=== PATIENT | female | born 1975 | race Two or more races ===

== ENCOUNTER → 2018-04-16 12:44 | Outpatient (CLI) | payer OTHER, SELFPAY ==
--- NOTE | 2018-04-16 12:48 | US_ITS ---
MM Dig mamm BI DX w/CAD, US breast LT limited INDICATION: Palpable abnormality in the upper outer left breast ORDERING PHYSICIAN: [facility] PATIENT AGE: 42 years COMPARISON: 04/23/2015 TECHNIQUE: Standard images performed along with spot compression views of the left breast and left breast ultrasound FINDINGS: There is dense fibroglandular tissue which decreases the sensitivity of mammography.. On the right there is no discrete mass or malignant appearing microcalcification. Asymmetric tissue is present in the infrahilar aspect of the right breast not significantly changed. There is a small cluster of calcification noted in the outer aspect of the right breast as seen on the neck cc views. This may been present but less apparent on the previous exam. Six-month follow-up is suggested. On the left, there is also dense fibroglandular tissue which decreases the sensitivity of mammography. No discrete mass or malignant appearing microcalcification. Spot compression views are performed in the area of reported abnormality showing no mammographic lesions. Left breast ultrasound: A 4 mm cyst is present at 4:00 near the nipple. There are few small nodes in the axilla. No other significant anomalies are evident. Previously there was a 9 mm cyst at 1:00 and a 6 mm complex cyst at 12:00 and a 5 mm complex cyst at 6:00 as well as a 6 mm cyst at 9:00. These are not not identified on today's exam IMPRESSION: No convincing evidence of malignancy. A small cluster of calcifications are noted in the outer aspect of the right breast for which six-month follow-up is suggested. No abnormality to correspond to the palpable area of interest in the left breast. Negative mammogram and negative ultrasound does not exclude the possibility of malignancy especially in a patient with dense breast tissue. Any palpable nodule should be managed on a clinical basis. BI-RADS Category: 3 Probably Benign Finding Short Term Follow-up RECOMMENDED FOLLOW-UP: 6M - 6 MONTH FOLLOW-UP (A letter has been sent to the patient regarding results of the study.)
== END ==
PROVIDERS: PCP Nurse Practitioner Obstetrics & Gynecology; Referring Provider Nurse Practitioner Obstetrics & Gynecology; Visit Provider Nurse Practitioner Obstetrics & Gynecology
DX: N60.02 Solitary cyst of left breast (principal)
CPT/HCPCS: 76642; 77066

== ENCOUNTER 2021-11-18 10:32 | Emergency (ER) | payer OTHER, SELFPAY ==
[2021-11-18] VITALS (7 sets, daily range): BP systolic 103–148; BP diastolic 63–78; PULSE 57–71; RESP 16–20; TEMP 36.7; O2SAT 95–100
--- NOTE | 2021-11-18 10:38 | XR_ITS ---
FINAL REPORT CLINICAL HISTORY: pain FINDINGS: RIGHT RIB SERIES Three views of the right ribs show no fractures. There is no pneumothorax or pleural fluid collection. Frontal chest radiograph is unremarkable. IMPRESSION: Negative right rib series. No pneumothorax. Reviewed, Interpreted and Dictated by Jean Saunders III, MD Transcribed by Aleyda Goldman Authenticated and [facility]
--- NOTE | 2021-11-18 10:38 | XR_ITS ---
FINAL REPORT CLINICAL HISTORY: pain FINDINGS: AP and lateral views were obtained. There is no acute fracture. There is no malalignment. There is rightward curvature of the lower thoracic spine. There are mild degenerative changes. There is significant degenerative change of the SI joints. IMPRESSION: Degenerative changes without acute bony abnormality. Reviewed, Interpreted and Dictated by Jean Saunders III, MD Transcribed by Denny Ramirez Authenticated and [facility]
--- NOTE | 2021-11-18 10:39 | HMH.EDGENADL ---
Discharge Plan Disposition Patient Disposition: Home, Self-Care Condition: Good Prescriptions Prescriptions: New ibuprofen 600 mg tablet 600 mg PO Q6H PRN (Reason: pain) Qty: 30 0RF methocarbamol 750 mg tablet 750 mg PO Q8H PRN (Reason: muscle spasm) Qty: 30 0RF diclofenac sodium 1 % gel 2 g topical QID Qty: 100 0RF Rx Instructions: apply to single elbow, wrist or hand; for hand includes palm/fingers/back of hand No Action hydroxyzine HCl 25 mg tablet 25 mg PO TID PRN (Reason: anxiety) Qty: 30 0RF Referrals Follow up/Referrals: Mei Wilson APRN [Primary Care Provider] - See instructions Activity Restrictions/Add. Instructions Additional Instructions/Restrictions: You have been evaluated for back pain, likely due to scoliosis and disc disease. It is very important that you take anti-inflammatory medication like 600 mg ibuprofen. Take Robaxin for muscle spasm. Okay to use topical diclofenac gel. Follow-up with your primary care doctor in 1 to 2 days for symptom recheck. Return to the emergency department at once for any new or worsening symptoms, pain, difficulty walking, numbness or weakness in your legs. Clinical Impressions Clinical Impression: Lumbar disc disease, Lumbar strain, Scoliosis Instructions Patient Instructions: Scoliosis-Adult, DI for Lumbar Radiculopathy Discharge ED Provider: Apple Andrea Adult HPI General Chief complaint: PAIN Stated complaint: Back pain Time Seen by Provider: 11/18/21 10:33 Mode of Arrival: Ambulatory Source of Information: Patient Limitations: No Limitations History of Present Illness HPI narrative: 46-year-old female presenting to the emergency department with back pain, radiating to the ribs. Symptoms started about 1 month ago. She has pain in the midportion of the low back. It as achy, sometimes sharp. Over the last 2 days it is started to radiate to the right, toward her ribs. Is worse at night. Improves throughout the day. She took ibuprofen yesterday. No medications yet today. Her children have osteogenesis imperfecta. She does not think that she has any bone disease, but is not sure. She has a family doctor. Has never seen a family resource specialist. No fevers, chills, nausea, vomiting, dysuria, hematuria. No recent falls or trauma. No numbness, weakness, tingling in her genital area or her legs. No difficulty ambulating. Related Data Previous Rx's Medication Instructions Recorded hydroxyzine HCl 25 mg tablet 25 mg PO TID PRN anxiety #30 tabs 02/25/19 diclofenac sodium 1 % topical gel 2 g topical QID #100 grams 11/18/21 ibuprofen 600 mg tablet 600 mg PO Q6H PRN pain #30 tabs 11/18/21 methocarbamol 750 mg tablet 750 mg PO Q8H PRN muscle spasm #30 11/18/21 tabs Allergies Allergy/AdvReac Type Severity Reaction Status Date / Time No Known Allergies Allergy Verified 02/25/19 16:16 PFSH PFS Social History Smoking Status: Never smoker alcohol intake: never substance use type: denies use current occupational status: other Travel in the last 8 weeks: Inside the [place] household members: family housing: house ROS Obtained: Yes All systems reviewed & no additional complaints except as documented Constitutional Constitutional: Denies chills, Denies fatigue, Denies fever(s), Denies headache(s) and Denies weakness ENT Ears, Nose, Mouth, and Throat: Denies headache(s) and Denies neck pain Cardiovascular Cardiovascular: Denies dyspnea and Denies edema Respiratory Respiratory: Denies cough and Denies dyspnea Gastrointestinal Gastrointestingal: Denies abdominal pain, nausea or vomiting Genitourinary Female Genitourinary: Denies dysuria and Denies hematuria Musculoskeletal Musculoskeletal: Reports back pain, Denies muscle weakness, Reports myalgias, Denies neck pain, Denies numbness and Denies tingling Integumentary/Breasts Skin/Breast: Denies redness and Denies rash Neurologic Neurologic
--- NOTE | 2021-11-18 10:46 | PC.NURSE ---
pt going to radiology
--- NOTE | 2021-11-18 12:49 | PC.NURSE ---
CALLED RADIOLOGY ABOUT LUMBAR READING NOT DONE
== END 2021-11-18 14:26 | disposition home or self-care (01) ==
PROVIDERS: Emergency Provider Emergency Medicine; PCP Nurse Practitioner Family
DX: M51.36 Other intervertebral disc degeneration, lumbar region (principal); M41.9 Scoliosis, unspecified; T14.8XXA Other injury of unspecified body region, initial encounter; F41.9 Anxiety disorder, unspecified; Z79.1 Long term (current) use of non-steroidal anti-inflammatories (NSAID); Z79.899 Other long term (current) drug therapy; Z82.79 Family history of other congenital malformations, deformations and chromosomal abnormalities
CPT/HCPCS: 71100; 72100; 99283